=== PATIENT | male | born 1970 | race African-American/Black ===

== ENCOUNTER 2016-09-25 06:49 | Emergency (ER) | payer SELFPAY ==
[~2016-09-25] VITALS: Ht 185.4 cm; Wt 106.6 kg
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
--- NOTE | 2016-09-25 07:18 | NUR ---
DR LINDSEY AT BEDSIDE FOR EVAL
[2016-09-25] MEDS ORDERED: TDAP [DIPH/PERTUSSIS/TET] 0.5 ML VIAL IM ONE ×2 (07:21→07:30)
--- NOTE | 2016-09-25 07:37 | NUR ---
[employer] SCHEDULER AT BEDSIDE
--- NOTE | 2016-09-25 08:10 | NUR ---
Patient discharged to home in stable condition. Written and verbal after care instructions given. Patient verbalizes understanding of instruction.
[2016-09-25 08:11] VITALS: BP 138/88
== END 2016-09-25 08:20 | disposition home or self-care (01) ==
LOC: ER 06:54
DX: S91.112A Laceration without foreign body of left great toe without damage to nail, initial encounter (principal); S91.115A Laceration without foreign body of left lesser toe(s) without damage to nail, initial encounter; Z88.8 Allergy status to other drugs, medicaments and biological substances; W22.8XXA Striking against or struck by other objects, initial encounter; Y93.89 Activity, other specified; Y92.89 Other specified places as the place of occurrence of the external cause; Y99.9 Unspecified external cause status
CPT/HCPCS: 73660; 90471; 90715; 99284; A4606; Z7610